=== PATIENT | female | born 1985 | race American Indian/Alaskan Native ===

== ENCOUNTER 2018-12-31 18:54 | Emergency (ER) | payer BC, OTHER ==
[2018-12-31 19:55] VITALS: BP 124/78
[2018-12-31] MEDS ORDERED: IBUPROFEN PO ONE (21:07)
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
== END 2018-12-31 22:53 | disposition home or self-care (01) ==
LOC: ED 18:54
DX: S39.012A Strain of muscle, fascia and tendon of lower back, initial encounter (principal); S13.4XXA Sprain of ligaments of cervical spine, initial encounter; R51 Headache; V49.49XA Driver injured in collision with other motor vehicles in traffic accident, initial encounter; Y93.89 Activity, other specified; Y92.89 Other specified places as the place of occurrence of the external cause; Y99.8 Other external cause status
CPT/HCPCS: 70450; 72100; 72125